=== PATIENT | male | born 1975 ===

== ENCOUNTER → 2019-02-02 | Outpatient (REF) | payer BC ==
[2019-02-02 13:37] LABS: RHEUMATOID FACTOR QUANT < 10.0 IU/ML (<15.0)
[2019-02-02 13:50] LABS: FOLATE 15.3 NG/ML; VITAMIN B12 LEVEL 629 PG/ML
[2019-02-07 00:06] LABS: ANTINUCLEAR ANTIBODIES DIRECT Negative (Negative); CERULOPLASMIN 18.6 mg/dL (16.0-31.0); COPPER PLASMA 79 ug/dL (72-166); VITAMIN B1 LEVEL WHOLE BLOOD 97.9 nmol/L (66.5-200.0); VITAMIN B6,PYRIDOXAL PHOSPHATE 20.6 ug/L (5.3-46.7); VITAMIN E(ALPHA TOCOPHEROL) 11.6 mg/L (7.0-25.1); VITAMIN E(GAMMA TOCOPHEROL) 2.3 mg/L (0.5-5.5)
== END ==
LOC: M LABNEURO 10:02
PROVIDERS: ATTEND Psychiatry & Neurology Neurology
DX: R42 Dizziness and giddiness (principal); R26.89 Other abnormalities of gait and mobility